=== PATIENT | male | born 1940 | race Caucasian/White ===

== ENCOUNTER → 2017-10-09 | Outpatient (CLI) | payer MEDICARE, BC ==
[~2017-10-09] VITALS: Ht 172.7 cm; Wt 90.3 kg
[~2017-10-09] MED LIST: AMILORIDE HCL/H1 TAB PO; FLAX SEED OIL1000 MG PO; LIPITOR20 MG PO; NASONEX0.05 MG/AC NS; OMEGA-3 FISH1200 MG PO; SILDENAFIL CITR20 MG PO
[2017-10-09 16:20] VITALS: BP 146/91
== END ==
LOC: AMSURD 16:07
DX: I49.3 Ventricular premature depolarization (principal)

== ENCOUNTER → 2018-10-09 | Outpatient (CLI) | payer MEDICARE, BC ==
[~2018-10-09] VITALS: Ht 172.7 cm; Wt 90.3 kg
[2018-10-09 16:20] VITALS: BP 148/84
== END ==
LOC: AMSURD 15:32
DX: I49.3 Ventricular premature depolarization (principal)

== ENCOUNTER → 2019-10-11 | Outpatient (CLI) | payer MEDICARE, BC ==
[~2019-10-11] VITALS: Ht 172.7 cm; Wt 90.3 kg
[~2019-10-11] MED LIST changes: +ATORVASTATIN CA20 MG PO; +DULERA1 ARO IH; +MAXZIDE 75 MG-1 EACH PO; +REVATIO20 MG PO; +VITAMIN E200 UNI1 PO
[2019-10-11 10:45] VITALS: BP 134/95
== END ==
LOC: RAD 10:18
DX: I49.3 Ventricular premature depolarization (principal)

== ENCOUNTER 2020-05-01 15:57 | Emergency (ER) | payer MEDICARE, BC ==
[2020-05-01] MEDS ORDERED: HCTZ/TRIAMTEREN1 TA2 PO (16:05)
[2020-05-01] MEDS ORDERED: XARELTO20 MG PO (16:05)
[2020-05-01] MEDS ORDERED: AMIODARONE200 MG PO (16:05)
[2020-05-01] MEDS ORDERED: GOOD SENSE ASPI81 M1 PO (16:06)
[2020-05-01 16:45] LABS: HEMATOCRIT 27.1 % (42.0-52.0); MEAN CELL VOLUME 80 fl (78-100); MEAN CORPUSCULAR HEMOGLOBIN 23 pg (27-31); MEAN PLATELET VOLUME 8.3 fl (7.4-10.4); PLATELET COUNT 417 K/mm3 (130-400); RED BLOOD COUNT 3.37 M/mm3 (4.20-5.60); RED CELL DISTRIBUTION WIDTH 17.8 % (11.5-14.5)
[2020-05-01 16:52] LABS: ALBUMIN 3.6 g/dL (3.4-4.8)
[2020-05-01 16:53] LABS: HEMOGLOBIN 7.8 g/dL (13.5-18.0); MEAN CORPUSCULAR HGB CONC 29 g/dL (33-37); POTASSIUM 4.3 mmol/L (3.5-5.1); SODIUM 139 mmol/L (136-145)
[2020-05-01 16:54] LABS: CALCIUM 8.5 mg/dL (8.3-10.5)
[2020-05-01 16:55] LABS: GLUCOSE 117 mg/dL (75-110); TOTAL PROTEIN 6.5 g/dL (6.2-8.1)
[2020-05-01 16:56] LABS: CARBON DIOXIDE 28 mmol/L (23-31)
[2020-05-01 16:57] LABS: TOTAL BILIRUBIN 0.3 mg/dL (0.2-1.2)
[2020-05-01 16:58] LABS: PARTIAL THROMBOPLASTIN TIME 24.1 SECONDS (21.0-32.0); PROTHROMBIN TIME 10.8 SECONDS (9.0-12.0)
[2020-05-01 17:00] LABS: AST-SGOT 17 U/L (5-34)
[2020-05-01 17:01] LABS: ALT/SGPT 16 U/L (0-55)
[2020-05-01 17:02] LABS: LIPASE 39 U/L (8-78)
[2020-05-01 17:10] LABS: TROPONIN-I < 0.03 ng/mL (<0.030)
[2020-05-01 17:23] LABS: LYMPHOCYTE 15 % (20-51); MONOCYTE 17 % (3-10); NEUTROPHILS 63 % (42-75)
[2020-05-01 21:26] VITALS: BP 173/81
== END 2020-05-01 21:28 | disposition short-term general hospital (02) ==
LOC: ED 15:57
PROVIDERS: Nurse Practitioner
DX: K92.2 Gastrointestinal hemorrhage, unspecified (principal); D64.9 Anemia, unspecified; R06.02 Shortness of breath; I48.91 Unspecified atrial fibrillation; I10 Essential (primary) hypertension; Z79.01 Long term (current) use of anticoagulants; Z79.82 Long term (current) use of aspirin
CPT/HCPCS: 00142; C9113; Q9967; V2632

== ENCOUNTER → 2020-05-12 | Outpatient (CLI) | payer MEDICARE, BC ==
[2020-05-01 21:26] VITALS: BP 173/81
[~2020-05-12] MED LIST changes: +AMIODARONE200 MG PO; +GOOD SENSE ASPI81 M1 PO; +HCTZ/TRIAMTEREN1 TA2 PO; +XARELTO20 MG PO
[2020-05-12 15:35] LABS: HEMATOCRIT 35.6 % (42.0-52.0); HEMOGLOBIN 10.4 g/dL (13.5-18.0); MEAN CELL VOLUME 82 fl (78-100); MEAN CORPUSCULAR HEMOGLOBIN 24 pg (27-31); MEAN PLATELET VOLUME 8.2 fl (7.4-10.4); PLATELET COUNT 442 K/mm3 (130-400); RED BLOOD COUNT 4.36 M/mm3 (4.20-5.60); RED CELL DISTRIBUTION WIDTH 19.9 % (11.5-14.5); WHITE BLOOD COUNT 8.1 K/mm3 (4.8-10.8)
[2020-05-12 15:46] LABS: POTASSIUM 4.4 mmol/L (3.5-5.1)
[2020-05-12 15:47] LABS: CALCIUM 8.8 mg/dL (8.3-10.5)
[2020-05-12 15:57] LABS: MEAN CORPUSCULAR HGB CONC 29 g/dL (33-37)
[2020-05-12 16:10] LABS: LYMPHOCYTE 13 % (20-51); MONOCYTE 14 % (3-10); NEUTROPHILS 68 % (42-75); TEAR DROP CELLS 2+
== END ==
LOC: LAB 15:26
PROVIDERS: Internal Medicine
DX: K92.2 Gastrointestinal hemorrhage, unspecified (principal)